=== PATIENT | female | born 1995 | race American Indian/Alaskan Native ===

== ENCOUNTER 2017-02-24 21:28 | Emergency (ER) | payer OTHER ==
[2017-02-24 22:05] VITALS: BP 132/70; PULSE 82; TEMP 98.2; BMI 40.4
--- NOTE | 2017-02-24 23:14 | PDOC ---
[id number] LIGHTHEADED/VAGINAL BLEED Time Seen by Provider: 02/24/17 22:48 History Source: Patient - History of Present Illness Initial Comments: 02/25/17 00:55 21 year old female with vaginal bleeding more than 2 pads per hour x2 days. vaginal bleeding >10 days heavy period. patient reports light period x 2 months. Past History - Past Medical History Allergies/Adverse Reactions: Allergies Allergy/AdvReac Type Severity Reaction Status Date / Time No Known Allergies Allergy Verified 02/24/17 22:03 Home Medications: Ambulatory Orders NK [No Known Home Medication] 05/25/16 - Psycho/Social/Smoking Cessation Hx Anxiety: No Suicidal Ideation: No Smoking History: Never smoked Have you smoked in the past 12 months: No Number of Cigarettes Smoked Daily: 0 Information on smoking cessation initiated: No Hx Alcohol Use: No Drug/Substance Use Hx: No Review of Systems - Review of Systems Able to Perform ROS?: Yes Is the patient limited Kazakh proficient: No Cardiac (ROS): Yes: Lightheadedness, Syncope (near) *Physical Exam - Vital Signs Last Vital Signs Temp Pulse Resp BP Pulse Ox 98.2 F 82 14 132/70 99 02/24/17 22:04 02/24/17 22:04 02/24/17 22:04 02/24/17 22:04 02/24/17 22:04 - Physical Exam General Appearance: Yes: Appropriately Dressed Respiratory/Chest: positive: Lungs Clear, Normal Breath Sounds Cardiovascular: positive: Regular Rate Gastrointestinal/Abdominal: positive: Normal Bowel Sounds, Soft Integumentary: positive: Normal Color, Dry, Warm. negative: Cyanotic, Erythema , Jaundice, Mottled, Pale, Cold, Clammy, Diaphoresis, Moist, Hives, Petechiae, Rash, Swelling, Ecchymosis, Bruising, Other Neurologic: positive: Fully Oriented, Alert, Normal Mood/Affect ED Treatment Course - LABORATORY CBC & Chemistry Diagram: 02/24/17 23:22 02/24/17 23:22 Medical Decision Making - Medical Decision Making DUB P: cbc cmp UA urine 02/25/17 01:07 patient reports feeling better. strict return precautions reviewed with patient. patient verbalized understanding. *DC/Admit/Observation/Transfer Diagnosis at time of Disposition: Dysfunctional uterine bleeding - Discharge Dispostion Disposition: HOME - Patient Instructions Printed Discharge Instructions: DI for Vaginal Bleeding Additional Instructions: follow up with your urban designer as soon as possible. return to the ER symptoms worsen
[2017-02-24 23:30] LABS: BASOPHIL 0.2 % (0-2.0); EOSINOPHIL 1.4 % (0-4.5); MCH 30.3 pg (25.7-33.7); MCHC 34.3 g/dl (32.0-36.0); MEAN CELL VOLUME 88.4 fl (80-96); MEAN PLT VOLUME 8.4 fl (7.5-11.1); NEUTROPHILS 56.7 % (42.8-82.8); PLATELET COUNT 219 K/MM3 (134-434); RDW 13.6 % (11.6-15.6); WHITE BLOOD COUNT 9.4 K/mm3 (4.0-10.0)
[2017-02-24] MEDS: SODIUM CHLORIDE 0.9% 1000 ML INFUS.BAG IV ONE (23:44)
[2017-02-25 00:05] LABS: URINE APPEARANCE SLCLOUDY; URINE BILIRUBIN NEGATIVE (NEGATIVE); URINE COLOR LTYELLOW; URINE GLUCOSE (UA) NEGATIVE (NEGATIVE); URINE KETONE NEGATIVE (NEGATIVE); URINE LEUK ESTERASE NEGATIVE (NEGATIVE); URINE NITRITE NEGATIVE (NEGATIVE); URINE UROBILINOGEN NEGATIVE E.U./dl (0.2-1.0)
[2017-02-25 00:11] LABS: ALBUMIN 3.8 g/dl (3.4-5.0); ANION GAP 10 (8-16); CALCIUM 9.1 mg/dL (8.5-10.1); CO2 25 mmol/L (21-32); GLUCOSE,RANDOM 87 mg/dL (74-106); SGOT/AST 47 U/L (15-37); SGPT/ALT 78 U/L (12-78)
[2017-02-25 00:14] LABS: ALK PHOS 72 U/L (45-117); BILIRUBIN,TOTAL 0.5 mg/dL (0.2-1.0); COCKROFT - GAULT 212.4065; CREATININE 0.6 mg/dL (0.55-1.02); TOT PROT 7.8 g/dl (6.4-8.2)
[2017-02-25 00:29] LABS: URINE BLOOD 3+ (NEGATIVE); URINE PROTEIN 1+ (NEGATIVE)
[2017-02-25 00:34] LABS: URINE RBC 1566 /hpf (0-3); URINE WBC 1 /hpf (3-5); YEAST RARE
== END 2017-02-25 01:13 | disposition home or self-care (01) ==
LOC: JER 21:28
DX: N93.8 Other specified abnormal uterine and vaginal bleeding (principal)
CPT/HCPCS: 36415; 80053; 81003; 81015; 84703; 85025; 86850; 86900; 86901; 99282-25

== ENCOUNTER 2017-11-27 18:37 | Emergency (ER) | payer OTHER ==
[2017-11-27 18:41] VITALS: BP 134/92; PULSE 114; TEMP 98.4; BMI 40.4
[2017-11-27] MEDS ORDERED: ALBUTEROL SO4 2.5/IPRATROPIUM 0.5 INH SOL 3 ML VIAL.NEB. NEB ONE ×4 (19:43→21:05)
--- NOTE | 2017-11-27 19:43 | PDOC ---
History of Present Illness - General Chief Complaint: Cold Symptoms Stated Complaint: S.O.B Time Seen by Provider: 11/27/17 19:08 History Source: Patient Exam Limitations: No Limitations - History of Present Illness Initial Comments: 11/27/17 19:51 Patient is a 22-year-old female with no past medical history who presents to the emergency department today complaining of shortness of breath. Patient states that approximately 3 weeks ago she had a cold admits she had fevers, postnasal drip, cough. She states that while her other symptoms of gone away her cough is gotten worse. She states that it is a dry cough and feels like she is wheezing. She states that she gets short of breath when she walks one block or up a flight of steps. There is a strong family history of asthma. The patient has never been diagnosed with asthma. Denies fevers, chills, sore throat , earache, nausea, vomiting, body aches and diarrhea. Past History - Travel Traveled outside of the country in the last 30 days: No Close contact w/someone who was outside of country & ill: No - Past Medical History Allergies/Adverse Reactions: Allergies Allergy/AdvReac Type Severity Reaction Status Date / Time No Known Allergies Allergy Verified 11/27/17 18:41 Home Medications: Ambulatory Orders Albuterol Sulfate Inhaler - [Ventolin HFA Inhaler -] 1 - 2 inh PO Q4H #1 inhaler 11/27/17 Azithromycin [Zithromax 250mg Tablets -] 250 mg PO UTDICT #6 tab 11/27/17 Prednisone [Deltasone -] 40 mg PO DAILY #10 tablet 11/27/17 CVA: No COPD: No DVT: No Dementia: No - Reproductive History Therapeutic (s) & number: No - Suicide/Smoking/Psychosocial Hx Smoking History: Never smoked Have you smoked in the past 12 months: No Number of Cigarettes Smoked Daily: 0 Hx Alcohol Use: Yes (SOCIAL) Drug/Substance Use Hx: No Substance Use Type: None Review of Systems - Review of Systems Able to Perform ROS?: Yes Comments:: 11/27/17 19:53 CONSTITUTIONAL: Absent: fever, chills, diaphoresis, generalized weakness, malaise, loss of appetite HEENT: Absent: rhinorrhea, nasal congestion, throat pain, throat swelling, difficulty swallowing, mouth swelling, ear pain, eye pain, visual Changes CARDIOVASCULAR: Absent: chest pain, loss of consciousness, palpitations, irregular heart rate, peripheral edema RESPIRATORY: Present: cough, SOB, wheezing. Absent: dyspnea with exertion, orthopnea, stridor , hemoptysis GASTROINTESTINAL: Absent: abdominal pain, abdominal distension, nausea, vomiting, diarrhea, constipation, melena, hematochezia GENITOURINARY: Absent: dysuria, frequency, urgency, hesitancy, hematuria, flank pain, genital pain MUSCULOSKELETAL: Absent: myalgia, arthralgia, joint swelling SKIN: Absent: rash, itching, pallor HEMATOLOGIC/IMMUNOLOGIC: Absent: easy bleeding, easy bruising, lymphadenopathy, frequent infections ENDOCRINE: Absent: unexplained weight gain, unexplained weight loss, heat intolerance, cold intolerance NEUROLOGIC: Absent: headache, focal weakness or paresthesias, dizziness, unsteady gait, seizure, mental status changes, bladder or bowel incontinence PSYCHIATRIC: Absent: anxiety, depression, suicidal or homicidal ideation, hallucinations. Is the patient limited Sammarinese proficient: No *Physical Exam - Vital Signs Last Vital Signs Temp Pulse Resp BP Pulse Ox 98.4 F 114 H 20 134/92 98 11/27/17 18:38 11/27/17 18:38 11/27/17 18:38 11/27/17 18:38 11/27/17 18:38 - Physical Exam Comments: 11/27/17 19:54 GENERAL: Well developed, well nourished. Awake and alert. No acute distress. HEENT: Normocephalic, atraumatic. PERRLA, EOMI. No conjunctival pallor. Sclera are non- icteric. Moist mucous membranes. Oropharynx is clear. NECK: Supple. Full ROM. No JVD. Carotid pulses 2+ and symmetric, without bruits. No thyromegaly. No lymphadenopathy. CARDIOVASCULAR: Regular rate and rhythm. No murmurs, rubs, or gallops. Distal pulses are 2+ and symmetric. PULMONARY: No evidence of respiratory distress. Lungs with inspiratory and expiratory wheezing bilaterally. No rales or rhonchi. ABDOMINAL: Soft. Non-tender. Non-distended. No rebound or guarding. No organomegaly. Normoactive bowel sounds. MUSCULOSKELETAL Normal range of motion at all joints. No bony deformities or tenderness. No CVA tenderness. EXTREMITIES: No cyanosis. No clubbing. No edema. No calf tenderness. SKIN: Warm and dry. Normal capillary refill. No rashes. No jaundice. NEUROLOGICAL: Alert, awake, appropriate. Cranial nerves 2-12 intact. No deficits to light touch and temperature in face, upper extremities and lower extremities. No motor deficits in the in face, upper extremities and lower extremities. Normoreflexic in the upper and lower extremities. Normal speech. Toes are down- going bilaterally. Gait is normal without ataxia. PSYCHIATRIC: Cooperative. Good eye contact. Appropriate mood and affect. Medical Decision Making - Medical Decision Making 11/27/17 19:55 Patient is a 22-year-old female with no past medical history who presents with 3 weeks of cough, shortness of breath, and wheezing. Pneumonia versus bronchitis. We'll obtain chest x-ray at this time. We'll give DuoNeb's to help with the wheezing. Reevaluate 11/27/17 20:59 X-ray is negative for pneumonia. Most likely bronchitis. Lung sounds still with wheezing but with better aeration to bases. Will give one more treatment. Will give albuterol inhaler and steroids on d/c. Pt. to keep f/u with her PCP. *DC/Admit/Observation/Transfer Diagnosis at time of Disposition: Bronchitis - Discharge Dispostion Disposition: HOME Condition at time of disposition: Stable Admit: No - Prescriptions Prescriptions: Albuterol Sulfate Inhaler - [Ventolin HFA Inhaler -] 1 - 2 inh PO Q4H #1 inhaler Azithromycin [Zithromax 250mg Tablets -] 250 mg PO UTDICT #6 tab Prednisone [Deltasone -] 40 mg PO DAILY #10 tablet - Referrals Referrals: Bety Ritter [Primary Care Provider] - Last Bonner MD [Staff Physician] - - Patient Instructions Printed Discharge Instructions: DI for Acute Bronchitis Additional Instructions: You have bronchitis. This is most likely due to a virus. Please take the Z-Jayden as prescribed. Please use the albuterol inhaler every 4 hours while awake to help with her symptoms. Your also prescribed prednisone. Please take the medication as directed. Please keep your follow-up with your primary care doctor. Return to the emergency department if you have worsening shortness of breath, difficulty breathing, chest pain, or any changes in your symptoms. - Post Discharge Activity Forms/Work/School Notes: Back to Work
== END 2017-11-27 21:23 | disposition home or self-care (01) ==
LOC: JERFT 18:37
PROC: 3E0F7GC Introduction of Other Therapeutic Substance into Respiratory Tract, Via Natural or Artificial Opening (ICD-10-PCS; principal; 2017-11-27)
PROC: 3E0F7GC Introduction of Other Therapeutic Substance into Respiratory Tract, Via Natural or Artificial Opening (ICD-10-PCS; 2017-11-27)
DX: J40 Bronchitis, not specified as acute or chronic (principal)
CPT/HCPCS: 71046-TC; 94640; 99281-25

== ENCOUNTER 2018-12-09 15:27 | Emergency (ER) | payer OTHER ==
[2018-12-09 15:31] VITALS: BMI 45.4
[2018-12-09] MEDS ORDERED: ONDANSETRON *ODT* 4 MG TABLET SL ONE (15:44)
[2018-12-09] MEDS ORDERED: ONDANSETRON *ODT* 4 MG TABLET ONE (15:49)
--- NOTE | 2018-12-09 15:54 | PDOC ---
History of Present Illness - General Chief Complaint: Vomiting/Diarrhea Stated Complaint: VOMITING/DIARRHEA Time Seen by Provider: 12/09/18 15:35 History Source: Patient Exam Limitations: Clinical Condition - History of Present Illness Initial Comments: 12/09/18 15:49 Patient with no significant past medical history present with complaint of epigastric pain, diarrhea, nausea or vomiting and rash to the face since this morning upon wake. Patient report vomiting 5 times a day and had countless episodes of diarrhea. Patient reported sore throat since this morning. Patient denies dizziness, shortness of breath, cough, fever, chills or body aches. LMP November 22 and patient is sexually active with one partner and using OCP for control. Timing/Duration: other (12hrs) Past History - Past Medical History Allergies/Adverse Reactions: Allergies Allergy/AdvReac Type Severity Reaction Status Date / Time No Known Allergies Allergy Verified 12/09/18 15:29 Home Medications: Ambulatory Orders Cefdinir 300 mg PO BID 7 Days #14 capsule 12/09/18 Mag Hydrox/Aluminum Hyd/Simeth [Maalox Advanced Suspension] 30 ml PO Q8H PRN # 200 ml 12/09/18 Ondansetron [Zofran Odt -] 4 mg SL TID PRN #12 od.tablet 12/09/18 CVA: No COPD: No DVT: No Dementia: No - Reproductive History Therapeutic (s) & number: No - Immunization History Immunization Up to Date: Yes - Suicide/Smoking/Psychosocial Hx Smoking History: Never smoked Have you smoked in the past 12 months: No Number of Cigarettes Smoked Daily: 0 Hx Alcohol Use: No Drug/Substance Use Hx: No Substance Use Type: None Review of Systems - Review of Systems Able to Perform ROS?: Yes Is the patient limited Solomon Islander proficient: No Constitutional: No: Chills, Fever, Weakness HEENTM: Yes: See HPI, Throat Pain. No: Eye Pain, Blurred Vision, Tearing, Recent change in vision, Double Vision, Cataracts, Ear Pain, Ocular Prothesis, Ear Discharge, Nose Pain, Nose Congestion, Tinnitus, Nose Bleeding, Hearing Loss , Throat Swelling, Mouth Pain, Dental Problems, Difficulty Swallowing, Mouth Swelling, Other Respiratory: No: Symptoms reported, See HPI, Cough, Orthopnea, Shortness of Breath, SOB with Exertion, SOB at Rest, Stridor, Wheezing, Productive cough, Hemoptysis, Other Cardiac (ROS): No: Symptoms Reported, See HPI, Chest Pain, Edema, Irregular Heart Rate, Lightheadedness, Palpitations, Syncope, Chest Tightness, Other ABD/GI: Yes: See HPI, Diarrhea, Abdominal cramping (epigastric). No: Constipated, Difficulty Swallowing, Nausea, Rectal Bleeding, Vomiting, Indigestion : No: Burning, Dysuria, Discharge, Frequency, Flank Pain, Hematuria, Urgency Musculoskeletal: No: Muscle Pain All Other Systems: Reviewed and Negative *Physical Exam - Vital Signs Last Vital Signs Temp Pulse Resp BP Pulse Ox 98.4 F 113 H 18 107/68 97 12/09/18 15:29 12/09/18 15:29 12/09/18 15:29 12/09/18 15:29 12/09/18 15:29 - Physical Exam Comments: 12/09/18 15:55 GENERAL: Well developed, well nourished. Awake and alert. No acute distress. HEENT: mild pharyngeal erythema. moderate erythematous rash on pharynx and roof of mouth. Normocephalic, atraumatic. PERRLA, EOMI. No conjunctival pallor. Sclera are non-icteric. Moist mucous membranes. NECK: Supple. Full ROM. CARDIOVASCULAR: Regular rate and rhythm. No murmurs, rubs, or gallops. Distal pulses are 2+ and symmetric. PULMONARY: No evidence of respiratory distress. Lungs clear to auscultation bilaterally. No wheezing, rales or rhonchi. ABDOMINAL: mild epigastric tenderness. Soft. Non-distended. No rebound or guarding. No organomegaly. Normoactive bowel sounds. MUSCULOSKELETAL Normal range of motion at all joints. EXTREMITIES: No cyanosis. SKIN: Warm and dry. diffused erythematous maculopapula guttate rash to face. Normal capillary refill. No jaundice. NEUROLOGICAL: Alert, awake, appropriate. Gait is normal without ataxia. PSYCHIATRIC: Cooperative. Good eye contact. Appropriate mood 12/09/18 16:07 General Appearance: Yes: Nourished, Appropriately Dressed. No: Apparent Distress Moderate Sedation - Procedure Monitoring Vital Signs: Procedure Monitoring Vital Signs Temperature 98.4 F 12/09/18 15:29 Pulse Rate 113 H 12/09/18 15:29 Respiratory Rate 18 12/09/18 15:29 Blood Pressure 107/68 12/09/18 15:29 O2 Sat by Pulse Oximetry (%) 97 12/09/18 15:29 ED Treatment Course - LABORATORY CBC & Chemistry Diagram: 12/09/18 15:53 12/09/18 15:53 Medical Decision Making - Medical Decision Making 12/09/18 16:07 Patient with no significant past medical history present with complaint of epigastric pain, diarrhea, nausea or vomiting and rash to the face since this morning upon wake. Patient report vomiting 5 times a day and had countless episodes of diarrhea. Patient reported sore throat since this morning. Exam significant for mild pharyngeal erythema with diffused erythematous maculopapula guttate rash to face and erythematous rash on pharynx and roof of mouth. Rapid strep ordered. CBC, CMP and tests ordered. Zofran 4 mg sublingual ordered for nausea. Maalox 30 ml by mouth and Pepcid and 40 mg IV ordered for abdominal discomfort. Treat based on lab results 12/09/18 18:30 Rapid strep was negative. CBC was normal. Chemistry shows elevated liver enzymes. Right upper quadrant ultrasound shows hepatic steathosis otherwise unremarkable. Patient will be treated for possible strep even though negative rapid strep test due to symptoms of erythematous rash to face and pharynx . Plan discussed with patient and patient agrees with plan. Patient is stable for discharge on Cefdinir for week, Zofran for nausea and Maalox abdominal discomfort as needed. 12/10/18 07:35 *DC/Admit/Observation/Transfer Diagnosis at time of Disposition: Steatohepatitis, Dermatitis Abdominal pain Qualifiers: Abdominal location: epigastric Qualified Code(s): R10.13 - Epigastric pain Pharyngitis Qualifiers: Pharyngitis/tonsillitis etiology: unspecified etiology Qualified Code(s): J02.9 - Acute pharyngitis, unspecified - Discharge Dispostion Disposition: HOME Condition at time of disposition: Stable Decision to Admit order: No - Prescriptions Prescriptions: Cefdinir 300 mg PO BID 7 Days #14 capsule Mag Hydrox/Aluminum Hyd/Simeth [Maalox Advanced Suspension] 30 ml PO Q8H PRN # 200 ml PRN Reason: abdominal discomfort Ondansetron [Zofran Odt -] 4 mg SL TID PRN #12 od.tablet PRN Reason: vomiting - Referrals Referrals: Deacon Hickman MD [Staff Physician] - - Patient Instructions Printed Discharge Instructions: DI for Nonalcoholic Fatty Liver Disease Additional Instructions: Your rapid strep was negative. Your abdominal ultrasound was normal except mildly enlarged liver. Your liver enzyme was elevated. Follow-up referred GI doctor as soon as possible to follow-up in liver. Take medications as prescribed. Increase fluid intake. - Post Discharge Activity
[2018-12-09] MEDS ORDERED: MAG HYDROX/AL HYDROX/SIMETH 30 ML UNIT-DOSE CUP PO ONE (16:00)
[2018-12-09] MEDS ORDERED: FAMOTIDINE 20 MG/50 ML IVPB 20 MG/50 ML MG IVPB ONE ×2 (16:00→16:03)
[2018-12-09] MEDS ORDERED: MAG HYDROX/AL HYDROX/SIMETH 30 ML UNIT-DOSE CUP ONE (16:03)
[2018-12-09 16:07] LABS: BASO % 0.4 % (0-2.0); EOS % 0.3 % (0-4.5); HEMATOCRIT 37.1 % (32.4-45.2); HEMOGLOBIN 12.9 GM/dL (10.7-15.3); LYMPH % 10.1 % (8-40); MCH 30.3 pg (25.7-33.7); MCHC 34.7 g/dl (32.0-36.0); MEAN CELL VOLUME 87.4 fl (80-96); MEAN PLT VOLUME 8.5 fl (7.5-11.1); MONO % 2.1 % (3.8-10.2); NEUT % 87.1 % (42.8-82.8); PLATELET COUNT 266 K/MM3 (134-434); RBC 4.24 M/mm3 (3.60-5.2); RDW 14.1 % (11.6-15.6); WHITE BLOOD COUNT 10.5 K/mm3 (4.0-10.0)
--- NOTE | 2018-12-09 16:17 | PDOC ---
*Physical Exam - Vital Signs Last Vital Signs Temp Pulse Resp BP Pulse Ox 98.4 F 113 H 18 107/68 97 12/09/18 15:29 12/09/18 15:29 12/09/18 15:29 12/09/18 15:29 12/09/18 15:29 ED Treatment Course - LABORATORY CBC & Chemistry Diagram: 12/09/18 15:53 12/09/18 15:53 - ADDITIONAL ORDERS Additional order review: 12/09/18 15:53 RBC 4.24 MCV 87.4 MCHC 34.7 RDW 14.1 MPV 8.5 Neutrophils % 87.1 H D Lymphocytes % 10.1 D Monocytes % 2.1 L Eosinophils % 0.3 D Basophils % 0.4 D - Medications Given in the ED: ED Medications Discontinued Medications Generic Name Dose Route Start Last Admin Trade Name Freq PRN Reason Stop Dose Admin Al Hydroxide/Mg Hydroxide 30 ml 12/09/18 16:00 12/09/18 16:09 Mylanta Oral Suspension - PO 12/09/18 16:01 30 ml ONCE ONE Administration Ondansetron HCl 4 mg 12/09/18 15:44 12/09/18 16:02 Zofran Odt - SL 12/09/18 15:45 4 mg ONCE ONE Administration Medical Decision Making - Medical Decision Making 12/09/18 16:16 Case discussed with CALLY Almanza. Plan as per CALLY Almanza. *DC/Admit/Observation/Transfer Diagnosis at time of Disposition: Steatohepatitis, Abdominal pain, Pharyngitis, Dermatitis - Discharge Dispostion Disposition: HOME Condition at time of disposition: Stable - Prescriptions Prescriptions: Cefdinir 300 mg PO BID 7 Days #14 capsule Mag Hydrox/Aluminum Hyd/Simeth [Maalox Advanced Suspension] 30 ml PO Q8H PRN # 200 ml PRN Reason: abdominal discomfort Ondansetron [Zofran Odt -] 4 mg SL TID PRN #12 od.tablet PRN Reason: vomiting - Referrals Referrals: Deacon Hickman MD [Staff Physician] - - Patient Instructions Printed Discharge Instructions: DI for Nonalcoholic Fatty Liver Disease Additional Instructions: Your rapid strep was negative. Your abdominal ultrasound was normal except mildly enlarged liver. Your liver enzyme was elevated. Follow-up referred GI doctor as soon as possible to follow-up in liver. Take medications as prescribed. Increase fluid intake. - Post Discharge Activity
[2018-12-09 16:30] LABS: ALBUMIN 3.6 g/dl (3.4-5.0); ALK PHOS 70 U/L (45-117); ANION GAP 6 MMOL/L (8-16); BILIRUBIN,TOTAL 0.4 mg/dL (0.2-1); BLOOD UREA NITROGEN 11 mg/dL (7-18); CALCIUM 8.7 mg/dL (8.5-10.1); CHLORIDE 107 mmol/L (98-107); CO2 24 mmol/L (21-32); CREATININE 0.6 mg/dL (0.55-1.3); GLUCOSE,RANDOM 126 mg/dL (74-106); POTASSIUM 4.1 mmol/L (3.5-5.1); SGOT/AST 138 U/L (15-37); SGPT/ALT 116 U/L (13-61); SODIUM 137 mmol/L (136-145); TOT PROT 8.4 g/dl (6.4-8.2)
[2018-12-09] MEDS ORDERED: SODIUM CHLORIDE 500 ML IV STA (16:46)
[2018-12-09 19:28] VITALS: BP 110/65; PULSE 88; TEMP 98.1
[2018-12-09 19:31] LABS: URINE APPEARANCE CLEAR; URINE BILIRUBIN NEGATIVE (<2.0 mg/dL); URINE COLOR YELLOW; URINE GLUCOSE (UA) NEGATIVE (NEGATIVE); URINE KETONE NEGATIVE (NEGATIVE); URINE LEUK ESTERASE NEGATIVE (NEGATIVE); URINE NITRITE NEGATIVE (NEGATIVE); URINE PROTEIN NEGATIVE (NEGATIVE); URINE UROBILINOGEN NEGATIVE mg/dL (0.2-1.0)
== END 2018-12-09 19:28 | disposition home or self-care (01) ==
LOC: JER 15:27
PROC: 3E033GC Introduction of Other Therapeutic Substance into Peripheral Vein, Percutaneous Approach (ICD-10-PCS; principal; 2018-12-09)
PROC: 3E033GC Introduction of Other Therapeutic Substance into Peripheral Vein, Percutaneous Approach (ICD-10-PCS; 2018-12-09)
DX: J02.9 Acute pharyngitis, unspecified (principal); K75.81 Nonalcoholic steatohepatitis (NASH); L30.9 Dermatitis, unspecified
CPT/HCPCS: 36415; 76705-TC; 80053; 81003; 84702; 85025; 87070; 87086; 87880; 96361; 96365; 99282-25; Q0162

== ENCOUNTER 2019-11-10 03:08 | Emergency (ER) | payer OTHER ==
[2019-11-10 04:31] VITALS: TEMP 97.8; BMI 40.4
--- NOTE | 2019-11-10 04:34 | PDOC ---
History of Present Illness - General Chief Complaint: Redness To Affected Area Stated Complaint: TONSILLITIS Time Seen by Provider: 11/10/19 04:34 - History of Present Illness Initial Comments: 11/10/19 05:46 24 year old woman with no pmhx who presents with sore throat since this AM. The patient had a viral URI last week. She has no other complaints. Denies difficulty breathing, denies fever, chest pain, shortness of breath or any other symptoms. ROS GENERAL/CONSTITUTIONAL: No fever or chills. No weakness. HEAD, EYES, EARS, NOSE AND THROAT: + sore throat. CARDIOVASCULAR: No chest pain or shortness of breath RESPIRATORY: No cough, wheezing, or hemoptysis. GASTROINTESTINAL: No nausea, vomiting, diarrhea or constipation. GENITOURINARY: No dysuria, frequency, or change in urination. MUSCULOSKELETAL: No joint or muscle swelling or pain. No neck or back pain. SKIN: No rash NEUROLOGIC: No headache, vertigo, loss of consciousness, or change in strength/ sensation. PE GENERAL: Awake, alert, and fully oriented, in no acute distress HEAD: No signs of trauma, normocephalic, atraumatic EYES: EOMI, sclera anicteric, conjunctiva clear ENT: erythmatous oropharynx w/ bilateral tonsillar exudates. Moist mucosa NECK: Normal ROM, supple LUNGS: No distress, speaks full sentences, clear to auscultation bilaterally HEART: Regular rate and rhythm, normal S1 and S2, no murmurs, rubs or gallops, peripheral pulses normal and equal bilaterally. ABDOMEN: Soft, nontender No guarding, no rebound. No masses EXTREMITIES : Normal inspection, Normal range of motion, no edema. No clubbing or cyanosis. NEUROLOGICAL: Cranial nerves II through XII grossly intact. Normal speech, no focal sensorimotor deficits SKIN: Warm, Dry, normal turgor, no rashes or lesions noted MDM DDX including but not limited to: pharyngitis ED Course: strep test sent - negative however shows clinical signs of strep will treat and give pcp d/u strict return precautions Patient agrees to plan Ariela Donnelly PGY2 Emergency Medicine Past History - Past Medical History Allergies/Adverse Reactions: Allergies Allergy/AdvReac Type Severity Reaction Status Date / Time No Known Allergies Allergy Verified 12/09/18 15:29 Home Medications: Ambulatory Orders Cefdinir 300 mg PO BID 7 Days #14 capsule 12/09/18 Mag Hydrox/Aluminum Hyd/Simeth [Maalox Advanced Suspension] 30 ml PO Q8H PRN # 200 ml 12/09/18 Ondansetron [Zofran Odt -] 4 mg SL TID PRN #12 od.tablet 12/09/18 Amoxicillin - [Amoxicillin 500mg Capsule -] 500 mg PO BID #30 capsule 11/10/19 CVA: No COPD: No DVT: No Dementia: No - Reproductive History Therapeutic (s) & number: No - Immunization History Immunization Up to Date: Yes - Psycho Social/Smoking Cessation Hx Smoking History: Never smoked Have you smoked in the past 12 months: No Number of Cigarettes Smoked Daily: 0 Hx Alcohol Use: No Drug/Substance Use Hx: No Substance Use Type: None *Physical Exam - Vital Signs Last Vital Signs Temp Pulse Resp BP Pulse Ox 97.8 F 97 H 20 120/69 98 11/10/19 03:20 11/10/19 03:20 11/10/19 03:20 11/10/19 03:20 11/10/19 03:20 Discharge - Discharge Information Problems reviewed: Yes Clinical Impression/Diagnosis: Pharyngitis Condition: Stable Disposition: HOME - Admission No - Additional Discharge Information Prescriptions: Amoxicillin - [Amoxicillin 500mg Capsule -] 500 mg PO BID #30 capsule - Follow up/Referral Referrals: Aby Dickinson MD [Primary Care Provider] - - Patient Discharge Instructions Patient Printed Discharge Instructions: DI for Pharyngitis/Tonsillopharyngitis -- Adult Additional Instructions: You were seen in the ED for complaints of throat swelling and redness In the ED you were evaluated with strep test Your results were negative, however you have signs of pharyngitis and you will have a course of antibiotics that you should complete There does not appear to be an acute need for immediate hospitalization. You are advised to follow up with your Primary Care Physician within 1 week. You were given a prescription for Amoxicillin that should be taken three times a day for 10 days. Return to the ED immediately if you experience worsening swelling in the throat , difficulty breathing or swallowing or any other concerning symptoms. - Post Discharge Activity
[2019-11-10] MEDS ORDERED: AMOXICILLIN 500 MG CAPSULE (FP) PO ONE (05:59)
--- NOTE | 2019-11-10 06:08 | PDOC ---
Attending Attestation - Resident Resident Name: Ariela Donnelly - ED Attending Attestation I have performed the following: I have examined & evaluated the patient, The case was reviewed & discussed with the resident, I agree w/resident's findings & plan - HPI HPI: 11/10/19 06:08 Pt comes with sore throat. She has sick contacts at work. SHe has no fever here. She has odynophagia. - Physicial Exam PE: 11/10/19 06:09 Heent normal; + pharyngeal exudate Afebrile Heart RRR Lung CTA Abd soft NT ND +BS no flank pain No ext edema No neuro findings. - Medical Decision Making 11/10/19 20:59 We will treat regardless of the negative rapid strep. Pt stable for d/c home
[2019-11-10] MEDS ORDERED: AMOXICILLIN 500 MG CAPSULE (FP) ONE (06:34)
[2019-11-10 06:49] VITALS: BP 117/73; PULSE 94
== END 2019-11-10 06:40 | disposition home or self-care (01) ==
LOC: JER 03:08
DX: J02.9 Acute pharyngitis, unspecified (principal)
CPT/HCPCS: 87070; 87880; 99282-25

== ENCOUNTER 2019-12-19 20:39 | Emergency (ER) | payer OTHER ==
[2019-12-19] MEDS ORDERED: ALBUTEROL SO4 2.5/IPRATROPIUM 0.5 INH SOL 3 ML VIAL.NEB. NEB ONE ×3 (21:05→22:09)
--- NOTE | 2019-12-19 21:05 | PDOC ---
Rapid Medical Evaluation Time Seen by Provider: 12/19/19 21:02 Medical Evaluation: Allergies Allergy/AdvReac Type Severity Reaction Status Date / Time No Known Allergies Allergy Verified 12/09/18 15:29 12/19/19 21:04 Pt presents for evaluation of cough and shortness of breath for one week. Hx of bronchitis Exam: lungs with scattered wheezing, coughing while taking deep breath Orders: duoneb Pt to proceed to the ER for evaluation Discharge Disposition - Diagnosis Cough - Referrals - Patient Instructions - Post Discharge Activity
[2019-12-19 21:08] VITALS: BP 126/83; PULSE 115; TEMP 98.2; BMI 46.6
[2019-12-19] MEDS ORDERED: DEXAMETHASONE LIQUID 0.5 MG/5 ML PO ONE (22:03)
[2019-12-19] MEDS ORDERED: MAGNESIUM SULF 50% (8.12 MEQ/2 ML-1 GM VIAL) IVPB ONE (22:03)
--- NOTE | 2019-12-19 22:07 | PDOC ---
History of Present Illness - General Chief Complaint: Cold Symptoms Stated Complaint: FEVER/COUGH Time Seen by Provider: 12/19/19 21:02 - History of Present Illness Initial Comments: 12/19/19 22:06 24-year-old female with a past medical history of bronchial asthma which is seasonal exacerbated over the last 3 days with out any precipitating event complains of cough fever and shortness of breath Past History - Past Medical History Allergies/Adverse Reactions: Allergies Allergy/AdvReac Type Severity Reaction Status Date / Time No Known Allergies Allergy Verified 12/19/19 21:07 Home Medications: Ambulatory Orders Cefdinir 300 mg PO BID 7 Days #14 capsule 12/09/18 Mag Hydrox/Aluminum Hyd/Simeth [Maalox Advanced Suspension] 30 ml PO Q8H PRN # 200 ml 12/09/18 Ondansetron [Zofran Odt -] 4 mg SL TID PRN #12 od.tablet 12/09/18 Amoxicillin - [Amoxicillin 500mg Capsule -] 500 mg PO BID #30 capsule 11/10/19 Albuterol 0.083% Nebulizer Dawna [Ventolin 0.083% Nebulizer Soln -] 1 neb NEB Q4H PRN #20 vial 12/19/19 Azithromycin [Zithromax -] 250 mg PO UTDICT #6 tab 12/19/19 Guaifenesin Dm [Mucinex Dm -] 1 tab PO BID #60 tab.er.12h 12/19/19 Nebulizer and Compressor [[place] Choice Nebulizer] 1 each MC ASDIR #1 each 12/19 CVA: No COPD: No DVT: No Dementia: No - Reproductive History Therapeutic (s) & number: No - Immunization History Immunization Up to Date: Yes - Psycho Social/Smoking Cessation Hx Smoking History: Never smoked Have you smoked in the past 12 months: No Number of Cigarettes Smoked Daily: 20 Information on smoking cessation initiated: No Hx Alcohol Use: No Drug/Substance Use Hx: No Substance Use Type: None Review of Systems - Review of Systems Constitutional: Yes: Fever Respiratory: Yes: Cough, Shortness of Breath, Wheezing *Physical Exam - Vital Signs Last Vital Signs Temp Pulse Resp BP Pulse Ox 98.2 F 115 H 17 126/83 100 12/19/19 21:04 12/19/19 21:04 12/19/19 21:04 12/19/19 21:04 12/19/19 21:04 - Physical Exam 12/19/19 22:07 GENERAL: The patient is awake, alert, and fully oriented, in no acute distress. HEAD: Normal with no signs of trauma. EYES: sclera anicteric, conjunctiva clear. ENT: Ears normal tympanic membranes normal oropharynx clear uvula midline NECK: Normal range of motion LUNGS: Diffuse wheezing HEART: S1 and S2 without murmur, rub or gallop. ABDOMEN: Soft, nontender, normoactive bowel sounds. No guarding, no rebound. No masses. EXTREMITIES: Normal range of motion, no edema. No clubbing or cyanosis. No cords, erythema, or tenderness. NEUROLOGICAL: Cranial nerves II through XII grossly intact. PSYCH: Normal mood, normal affect. SKIN: Warm, Dry, normal turgor, no rashes or lesions noted. ED Treatment Course - RADIOLOGY Radiology Studies Ordered: Category Date Time Status CHEST PA & LAT [RAD] Stat Radiology 12/19/19 22:04 Ordered - Medications Given in the ED: ED Medications Discontinued Medications Generic Name Dose Route Start Last Admin Trade Name Freq PRN Reason Stop Dose Admin Albuterol/Ipratropium 1 amp 12/19/19 21:05 12/19/19 21:32 Duoneb - NEB 12/19/19 21:06 1 amp ONCE ONE Administration Medical Decision Making - Medical Decision Making 12/19/19 22:42 Patient will be signed out to the main emergency room Discharge - Discharge Information Problems reviewed: Yes Clinical Impression/Diagnosis: Cough, Asthmatic bronchitis - Follow up/Referral Referrals: Aby Dickinson MD [Primary Care Provider] - - Patient Discharge Instructions Additional Instructions: Please take the Zithromax and the Mucinex as directed. Return to the emergency room for worsening symptoms. Please use your nebulizer as directed without fail follow-up with your primary care physician in 1 to 2 days for further evaluation and treatment options and return to the emergency room should symptoms worsen. - Post Discharge Activity
[2019-12-19] MEDS ORDERED: DEXAMETHASONE SOD PHOSPHATE 10 MG/1 ML VIAL ONE (22:09)
[2019-12-19] MEDS ORDERED: MAGNESIUM 1GM/D5W - 2 GM/200 ML IVPB IVPB ONE (22:11)
[2019-12-19] MEDS: ALBUTEROL SO4 2.5/IPRATROPIUM 0.5 INH SOL 3 ML VIAL.NEB. NEB SCH ×4 (22:27→23:09)
--- NOTE | 2019-12-19 23:44 | PDOC ---
*Physical Exam - Vital Signs Last Vital Signs Temp Pulse Resp BP Pulse Ox 98.2 F 115 H 17 126/83 100 12/19/19 21:04 12/19/19 21:04 12/19/19 21:04 12/19/19 21:04 12/19/19 21:04 ED Treatment Course - Medications Given in the ED: ED Medications Discontinued Medications Generic Name Dose Route Start Last Admin Trade Name Freq PRN Reason Stop Dose Admin Albuterol/Ipratropium 1 amp 12/19/19 21:05 12/19/19 21:32 Duoneb - NEB 12/19/19 21:06 1 amp ONCE ONE Administration Albuterol/Ipratropium 1 amp 12/19/19 22:15 12/19/19 23:09 Duoneb - NEB 12/19/19 23:01 1 amp Q15M MARKOS Administration Dexamethasone 10 mg 12/19/19 22:03 12/19/19 22:27 Decadron Liquid - PO 12/19/19 22:04 10 mg ONCE ONE Administration Magnesium Sulfate 2 gm 12/19/19 22:03 12/19/19 22:27 Magnesium Sulfate IVPB 12/19/19 22:04 2 gm ONCE ONE Administration Medical Decision Making - Medical Decision Making 12/19/19 23:44 Patient seen by the advanced practice provider under my direct supervision. Ancillary testing reviewed as necessary. I agree with plan as outlined by the advanced practice provider. Discharge - Discharge Information Problems reviewed: Yes Clinical Impression/Diagnosis: Cough Asthmatic bronchitis Qualifiers: Asthma severity: mild Asthma persistence: intermittent Asthma complication type : with acute exacerbation Qualified Code(s): J45.21 - Mild intermittent asthma with (acute) exacerbation Condition: Stable Disposition: HOME - Additional Discharge Information Prescriptions: Albuterol 0.083% Nebulizer Dawna [Ventolin 0.083% Nebulizer Soln -] 1 neb NEB Q4H PRN #20 vial PRN Reason: Wheezing Azithromycin [Zithromax -] 250 mg PO UTDICT #6 tab Guaifenesin Dm [Mucinex Dm -] 1 tab PO BID #60 tab.er.12h Nebulizer and Compressor [[place] Choice Nebulizer] 1 each ASDIR #1 each - Follow up/Referral Referrals: Aby Dickinson MD [Primary Care Provider] - - Patient Discharge Instructions Additional Instructions: Please take the Zithromax and the Mucinex as directed. Return to the emergency room for worsening symptoms. Please use your nebulizer as directed without fail follow-up with your primary care physician in 1 to 2 days for further evaluation and treatment options and return to the emergency room should symptoms worsen. - Post Discharge Activity Work/Back to School Note: Back to Work
--- NOTE | 2019-12-19 23:53 | PDOC ---
*Physical Exam - Vital Signs Last Vital Signs Temp Pulse Resp BP Pulse Ox 98.2 F 115 H 17 126/83 100 12/19/19 21:04 12/19/19 21:04 12/19/19 21:04 12/19/19 21:04 12/19/19 21:04 - Physical Exam General Appearance: Yes: Appropriately Dressed. No: Apparent Distress Neck: positive: Trachea midline Respiratory/Chest: positive: Wheezing (Expirational). negative: Respiratory Distress, Accessory Muscle Use Cardiovascular: positive: Regular Rhythm, Tachycardia. negative: Edema, JVD, Murmur Gastrointestinal/Abdominal: positive: Normal Bowel Sounds, Soft. negative: Tender ED Treatment Course - Medications Given in the ED: ED Medications Discontinued Medications Generic Name Dose Route Start Last Admin Trade Name Theoq PRN Reason Stop Dose Admin Albuterol/Ipratropium 1 amp 12/19/19 21:05 12/19/19 21:32 Duoneb - NEB 12/19/19 21:06 1 amp ONCE ONE Administration Albuterol/Ipratropium 1 amp 12/19/19 22:15 12/19/19 23:09 Duoneb - NEB 12/19/19 23:01 1 amp Q15M MARKOS Administration Dexamethasone 10 mg 12/19/19 22:03 12/19/19 22:27 Decadron Liquid - PO 12/19/19 22:04 10 mg ONCE ONE Administration Magnesium Sulfate 2 gm 12/19/19 22:03 12/19/19 22:27 Magnesium Sulfate IVPB 12/19/19 22:04 2 gm ONCE ONE Administration ED Progress Note - Progress Note Progress Note: 12/19/19 23:55 Received signout from CALLY Bridges. Briefly this a 24-year-old woman history of bronchial asthma has been experiencing cough fevers and audible wheezing which is worsened over the past 3 days. Chest x-ray is unremarkable Patient has received DuoNeb's x4, Decadron 10 mg orally, 2 g of magnesium sulfate Patient is pending reassessment Medical Decision Making - Medical Decision Making 12/19/19 23:55 Patient is speaking full sentences. Repeat lung exam reveals mild expiratory wheezes Patient reports ease of breathing. Magnesium is just finished prior to reassessment. Will reassess patient in 10 minutes. If improved I will walk the patient and reassess. 12/20/19 00:32 Patient able to ambulate throughout the emergency department without difficulty. Patient continues to speak in long sentences without feeling short of breath. Repeat lung exam reveals clear lungs. Discharge home I discussed the physical exam findings, ancillary test results and final diagnoses with the patient. I answered all of the patient's questions. The patient was satisfied with the care received and felt comfortable with the discharge plan and treatment plan. The patient will call their primary care physician within 24 hours to arrange follow-up and will return to the Emergency Department with any new, persistent or worsening symptoms. Discharge - Discharge Information Problems reviewed: Yes Clinical Impression/Diagnosis: Cough Asthmatic bronchitis Qualifiers: Asthma severity: mild Asthma persistence: intermittent Asthma complication type : with acute exacerbation Qualified Code(s): J45.21 - Mild intermittent asthma with (acute) exacerbation Condition: Stable Disposition: HOME - Admission No - Additional Discharge Information Prescriptions: Albuterol 0.083% Nebulizer Dawna [Ventolin 0.083% Nebulizer Soln -] 1 neb NEB Q4H PRN #20 vial PRN Reason: Wheezing Azithromycin [Zithromax -] 250 mg PO UTDICT #6 tab Guaifenesin Dm [Mucinex Dm -] 1 tab PO BID #60 tab.er.12h Nebulizer and Compressor [[place] Choice Nebulizer] 1 each ASDIR #1 each - Follow up/Referral Referrals: Aby Dickinson MD [Primary Care Provider] - - Patient Discharge Instructions Additional Instructions: Please take the Zithromax and the Mucinex as directed. Return to the emergency room for worsening symptoms. Please use your nebulizer as directed without fail follow-up with your primary care physician in 1 to 2 days for further evaluation and treatment options and return to the emergency room should symptoms worsen. - Post Discharge Activity Work/Back to School Note: Back to Work
== END 2019-12-20 00:38 | disposition home or self-care (01) ==
LOC: JER 20:39
PROC: 3E0F7GC Introduction of Other Therapeutic Substance into Respiratory Tract, Via Natural or Artificial Opening (ICD-10-PCS; principal; 2019-12-19)
PROC: 3E033GC Introduction of Other Therapeutic Substance into Peripheral Vein, Percutaneous Approach (ICD-10-PCS; 2019-12-19)
DX: J45.909 Unspecified asthma, uncomplicated (principal); R05 Cough; F17.210 Nicotine dependence, cigarettes, uncomplicated
CPT/HCPCS: 71046-TC-FY; 99281-25

== ENCOUNTER 2023-02-12 06:15 | Emergency (ER) | payer OTHER ==
[2023-02-12 06:31] VITALS: BMI 50.5
[2023-02-12] MEDS ORDERED: ONDANSETRON 4 MG/2 ML VIAL IVPUSH ONE (07:21)
[2023-02-12] MEDS ORDERED: SODIUM CHLORIDE 0.9% 500 ML INFUS.BAG IV ONE (07:21)
[2023-02-12] MEDS ORDERED: ONDANSETRON 4 MG/2 ML VIAL ONE (07:29)
[2023-02-12 08:05] LABS: BASO % 0.3 % (0-2.0); EOS % 1.8 % (0-4.5); HEMATOCRIT 34.8 % (32.4-45.2); MCH 29.9 pg (25.7-33.7); MCHC 34.6 g/dl (32.0-36.0); MEAN CELL VOLUME 86.4 fl (80-96); MONO % 5.1 % (3.8-10.2); NEUT % 62.8 % (42.8-82.8); PLATELET COUNT 232 10^3/uL (134-434); RBC 4.03 M/mm3 (3.60-5.2); RDW 14.1 % (11.6-15.6); WHITE BLOOD COUNT 8.3 K/mm3 (4.0-10.0)
[2023-02-12 08:32] LABS: CALCIUM 8.5 mg/dL (8.5-10.1)
[2023-02-12 08:33] LABS: BLOOD UREA NITROGEN 13.9 mg/dL (7-18); MAGNESIUM 1.9 mg/dL (1.8-2.4)
[2023-02-12] MEDS ORDERED: KETOROLAC TROMETHAMINE 15 MG/ML VIAL IVPUSH ONE (08:35)
[2023-02-12 08:36] LABS: CREATININE 0.6 mg/dL (0.55-1.3)
[2023-02-12 08:37] LABS: BILIRUBIN,TOTAL 0.3 mg/dL (0.2-1)
[2023-02-12 08:38] LABS: TOT PROT 7.2 g/dl (6.4-8.2)
[2023-02-12] MEDS ORDERED: KETOROLAC TROMETHAMINE 15 MG/ML VIAL ONE (08:39)
[2023-02-12 09:02] LABS: EPI CELLS 25 /uL (0-25.1); HYALINE CASTS 15 /uL (0-3.1); URINE APPEARANCE TURBID; URINE BACTERIA 295 /uL (0-1359); URINE BILIRUBIN NEGATIVE (NEGATIVE); URINE COLOR ORANGE; URINE GLUCOSE (UA) NEGATIVE (NEGATIVE); URINE KETONE NEGATIVE (NEGATIVE); URINE LEUK ESTERASE 3+ (NEGATIVE); URINE NITRITE NEGATIVE (NEGATIVE); URINE PROTEIN 2+ (NEGATIVE); URINE RBC 19244 /uL (0-23.9); URINE WBC 10459 /uL (0-25.8)
[2023-02-12] MEDS ORDERED: CEFPODOXIME PROXETIL 100 MG TABLET PO ONE (10:10)
[2023-02-12 10:35] VITALS: BP 115/60; PULSE 62; RESP 16; TEMP 98.2
== END 2023-02-12 10:38 | disposition home or self-care (01) ==
LOC: JER 06:15
PROC: 3E0333Z Introduction of Anti-inflammatory into Peripheral Vein, Percutaneous Approach (ICD-10-PCS; principal; 2023-02-12)
PROC: 3E033GC Introduction of Other Therapeutic Substance into Peripheral Vein, Percutaneous Approach (ICD-10-PCS; 2023-02-12)
DX: N39.0 Urinary tract infection, site not specified (principal); R35.0 Frequency of micturition; R30.0 Dysuria
CPT/HCPCS: 36415; 74176-TC; 76775-TC; 80053; 81003; 83735; 84703; 85025; 87086; 87186; 99285-25

== ENCOUNTER 2025-06-26 08:34 | Emergency (ER) | payer OTHER ==
[2025-06-26 08:46] VITALS: BP 121/60; PULSE 62; RESP 18; TEMP 97.7; BMI 50.5
[2025-06-26 09:44] LABS: ABSOLUTE IMMATURE GRANULOCYTES 0.03 x10^3/uL (0.0-0.031); BASOPHILS # 0.01 x10^3/uL (0.01-0.08); EOSINOPHIL % 1.8 % (0.7-5.8); EOSINOPHILS # 0.13 x10^3/uL (0.04-0.36); MCHC 31.8 g/dl (32.2-35.5); MEAN CELL VOLUME 90.0 fl (79.4-94.8); MEAN PLT VOLUME 11.0 fl (9.4-12.3); MONOCYTE # 0.36 x10^3/uL (0.24-0.86); MONOCYTE % 5.0 % (4.7-12.5); RDW 14.5 % (12.1-16.5)
[2025-06-26 09:48] LABS: EPI CELLS >36 /uL (0-25.1); HYALINE CASTS 1 /uL (0-3.1); URINE APPEARANCE CLOUDY; URINE BACTERIA 371 /uL (0-1359); URINE BILIRUBIN NEGATIVE (NEGATIVE); URINE COLOR ORANGE; URINE GLUCOSE (UA) NEGATIVE (NEGATIVE); URINE KETONE 1+ (NEGATIVE); URINE LEUK ESTERASE TRACE (NEGATIVE); URINE NITRITE NEGATIVE (NEGATIVE); URINE PROTEIN 2+ (NEGATIVE); URINE RBC 4394 /uL (0-23.9); URINE UROBILINOGEN 1.0 mg/dL (0.2-1.0); URINE WBC 10 /uL (0-25.8)
[2025-06-26 09:49] LABS: HCG,QUALITATIVE URINE Negative
[2025-06-26 10:21] LABS: GLUCOSE,RANDOM 83.0 mg/dL (74-106)
[2025-06-26 10:22] LABS: CO2 22.0 mmol/L (21-32)
[2025-06-26 10:26] LABS: CREATININE 0.59 mg/dL (0.55-1.3)
[2025-06-26 14:46] LABS: HCV DIAGNOSTIC IN-HOUSE W/RFLX NON-REACTIVE (NONREACTIVE); HIV INTERPRETATION NEGATIVE (NEGATIVE)
== END 2025-06-26 12:23 | disposition home or self-care (01) ==
LOC: JER 08:34
DX: N92.1 Excessive and frequent menstruation with irregular cycle (principal); N88.8 Other specified noninflammatory disorders of cervix uteri; N83.202 Unspecified ovarian cyst, left side; R10.30 Lower abdominal pain, unspecified
CPT/HCPCS: 36415; 76830-TC; 80048; 81003; 84703; 85025; 86803; 87086; 87389; 99284-25